=== PATIENT | male | born 1965 | race Caucasian/White ===

== ENCOUNTER → 2017-08-17 | Outpatient (CLI) | payer OTHER ==
[~2017-08-17] MED LIST: CLARITIN,ALAVAR10 MG PO; LOPID600 MG PO; LOPRESSOR25 MG PO; MOBIC15 MG PO; ODOR FREE GARL1 EAC1 PO; OMEPRAZOLE40 M1 PO; PAXIL30 MG PO; PRINIVIL10 MG PO; RYBIX ODT50 MG PO; SIMVASTATIN20 MG PO; SIMVASTATIN40 M1 PO; TOPROL XL50 MG PO; ULTRAM50 MG PO; WELLBUTRIN XL300 MG PO; XANAX0.25 MG PO; XANAX0.5 MG PO
== END | disposition home or self-care (01) ==
LOC: CDC 14:25
DX: Z01.810 Encounter for preprocedural cardiovascular examination (principal); H02.826 Cysts of left eye, unspecified eyelid; I44.4 Left anterior fascicular block; R94.31 Abnormal electrocardiogram [ECG] [EKG]
CPT/HCPCS: 93000

== ENCOUNTER 2017-08-23 08:32 | Day surgery (SDC) | payer OTHER ==
[~2017-08-23] VITALS: Ht 182.9 cm; Wt 108.0 kg
[2017-08-23 09:15] VITALS: BP 117/88
[2017-08-23 13:16] VITALS: BP 117/80
[2017-08-23 13:55] VITALS: BP 123/94
== END 2017-08-23 13:55 | disposition home or self-care (01) ==
LOC: SDC
PROC: 08BR0ZX Excision of Left Lower Eyelid, Open Approach, Diagnostic (ICD-10-PCS; principal; 2017-08-23)
DX: H02.825 Cysts of left lower eyelid (principal); E78.5 Hyperlipidemia, unspecified; I10 Essential (primary) hypertension; I44.4 Left anterior fascicular block; Z87.891 Personal history of nicotine dependence
CPT/HCPCS: 88305; J0690; J1100; J2405; S0020